=== PATIENT | female | born 1980 | race African-American/Black ===

== ENCOUNTER 2016-09-01 18:26 | Emergency (ER) | payer MEDICAID ==
[~2016-09-01] VITALS: Ht 157.5 cm; Wt 85.0 kg
[2016-09-01 18:28] VITALS: BP 181/91; PULSE 102; RESP 16; TEMP 98.1; O2SAT 100
[2016-09-02] MEDS ORDERED: BACT800T5 PO (11:56)
[2016-09-02] MEDS ORDERED: CYCL5TAB PO (11:56)
== END 2016-09-01 23:59 | disposition left against medical advice (07) ==
LOC: NED 18:26
DX: R10.9 Unspecified abdominal pain (principal)
CPT/HCPCS: 99281

== ENCOUNTER 2016-09-02 11:14 | Emergency (ER) | payer MEDICAID, OTHER ==
[~2016-09-02] VITALS: Ht 157.5 cm; Wt 82.0 kg
[2016-09-02 11:17] VITALS: BP 162/122; PULSE 81; RESP 16; TEMP 98.7; O2SAT 99
--- NOTE | 2016-09-02 11:27 | PD ---
HPI . Left-sided back pain Chief Complaint: Pain: Acute or Chronic Time Seen by Provider: 11:27 Travel History International Travel<30 days: No Contact w/Intl Traveler<30days: No Traveled to known affect area: No History of Present Illness HPI 35-year-old female with no significant past medical history here with complaints of left-sided back pain. Patient says it has been a little bit more prominent over the past 2 days. She has had similar symptoms in the past roughly a few months ago and eventually the pain subsided. She has not yet seen a primary care provider as she has some difficulty understanding her insurance. Further questioning she admits to some increased urinary frequency, but denies any dysuria. She does not have any bowel or bladder dysfunction. She does not have any saddle anesthesia. She does not have spinal process tenderness. She denies any recent injury or heavy lifting. She has no other complaints. Her blood pressure is elevated, but she denies any history of hypertension. PFSH Past Medical History Hx Anticoagulant Therapy: No Diabetes: No Diminished Hearing: No ?: Not : 6 Para: 4 Miscarriage: 0 : 2 Tubal Ligation: Yes Past Surgical History Section: Yes (X 3) Other Surgery: Yes (HERNIA REPAIR) Social History Alcohol Use: Yes (OCC.) Tobacco Use: Yes Substance Use: Yes ("PAST") Allergies-Medications (Allergen,Severity, Reaction): Coded Allergies: No Known Allergies (Verified , 09/02/16) Reported Meds & Prescriptions Reported Meds & Active Scripts Active Flexeril (Cyclobenzaprine HCl) 5 Mg Tab 5 Mg PO TID Bactrim DS (Sulfamethoxazole-Trimethoprim) 800-160 Mg Tab 1 Tab PO BID Review of Systems General / Constitutional: No: Fever Eyes: No: Visual changes HENT: No: Headaches Cardiovascular: No: Chest Pain or Discomfort Respiratory: No: Shortness of Breath Gastrointestinal: No: Abdominal Pain Genitourinary: No: Dysuria Musculoskeletal: Positive: Pain (back pain) Skin: No Rash Neurologic: No: Weakness Psychiatric: No: Depression Endocrine: No: Polydipsia Hematologic/Lymphatic: No: Easy Bruising Physical Exam Narrative GENERAL: AAO x 3, no acute distress, Well-nourished, well-developed patient. SKIN: Warm and dry. No visible rashes or bruising. HEAD: Normocephalic and atraumatic. EYES: No scleral icterus. No injection or drainage. ENT: No nasal drainage noted. Mucous membranes pink. Airway patent. NECK: Supple, trachea midline. No JVD. CARDIOVASCULAR: Regular rate and rhythm without murmurs, gallops, or rubs. RESPIRATORY: Breath sounds equal bilaterally. No accessory muscle use. No rhonchi or rales. GASTROINTESTINAL: Abdomen soft, non-tender, nondistended. EXTREMITIES: No cyanosis or edema. BACK: Nontender without obvious deformity. No CVA tenderness. left side paraspinal tenderness in l spine PSYCH: AAO x 3, normal affect. Data Data Last Documented VS Vital Signs Date Time Temp Pulse Resp B/P Pulse Ox O2 Delivery O2 Flow Rate FiO2 09/02/16 11:17 98.7 81 16 162/122 99 Orders Urinalysis - C+S If Indicated (09/02/16 11:29) Labs Laboratory Tests Test 09/02/16 11:35 Urine Collection Type CLEAN CATCH Urine Color YELLOW Urine Turbidity SLIGHT Urine pH 6.0 Urine Specific [place] 1.025 Urine Protein NEG mg/dL Urine Glucose (UA) NEG mg/dL Urine Ketones NEG mg/dL Urine Occult Blood TRACE Urine Nitrite NEG Urine Bilirubin NEG Urine Leukocyte Esterase TRACE Urine RBC 0-3 /hpf Urine WBC 3-5 /hpf Urine Squamous Epithelial > 8 /hpf Cells Urine Amorphous Sediment MOD Urine Bacteria FEW /hpf Microscopic Urinalysis Comment CULT NOT INDICATED Urine Collection Time 1135 MDM Medical Decision Making Medical Screen Exam Complete: Yes Emergency Medical Condition: Yes Medical Record Reviewed: Yes Differential Diagnosis Muscle strain, UTI, less likely spinal fracture Narrative Course 35-year-old female with no significant past medical history here with complaints of left-sided back pain. Patient says it has been a little bit more prominent over the past 2 days. She has had similar symptoms in the past roughly a few months ago and eventually the pain subsided. She has not yet seen a primary care provider as she has some difficulty understanding her insurance. Further questioning she admits to some increased urinary frequency, but denies any dysuria. She does not have any bowel or bladder dysfunction. She does not have any saddle anesthesia. She does not have spinal process tenderness. She denies any recent injury or heavy lifting. She has no other complaints. Her blood pressure is elevated, but she denies any history of hypertension. Patient seen and examined. She does not have any significant findings on examination other than some paraspinal tenderness in the lumbar area. She does admit to increased urinary frequency, therefore I will check a UA to rule out any type of UTI. If urine is positive, will treat for urinary tract infection. If negative I will treat her with a course of muscle relaxers. I've advised her that she will need to establish and follow up with primary care provider for further workup of her back pain as well as recheck of her blood pressure. Laboratory Tests Test 09/02/16 11:35 Urine Collection Type CLEAN CATCH Urine Color YELLOW Urine Turbidity SLIGHT Urine pH 6.0 Urine Specific [place] 1.025 Urine Protein NEG mg/dL Urine Glucose (UA) NEG mg/dL Urine Ketones NEG mg/dL Urine Occult Blood TRACE Urine Nitrite NEG Urine Bilirubin NEG Urine Leukocyte Esterase TRACE Urine RBC 0-3 /hpf Urine WBC 3-5 /hpf Urine Squamous Epithelial > 8 /hpf Cells Urine Amorphous Sediment MOD Urine Bacteria FEW /hpf Microscopic Urinalysis Comment CULT NOT INDICATED Urine Collection Time 1135 Patient has trace of leuks and blood, with increased urinary frequency. Will go ahead and treat for UTI Patient verbalized understanding of instructions, questions were answered, and thanked me for their care. I advised them if their condition worsens, please return to the nearest emergency room for further care. Diagnosis Primary Impression: Elevated blood pressure reading without diagnosis of hypertension Additional Impressions: Urinary tract infection Qualified Code: N30.01 - Acute cystitis with hematuria Muscle strain Patient Instructions: General Instructions, Hypertension (ED), Muscle Strain ( ED) Additional Instructions: Please return to emergency department if your symptoms return or worsen. Follow up with your primary care provider. Take medications as prescribed. Muscle relaxers can cause drowsiness. Do not drive, swim or operate heavy machinery while using these medications. Med/Other Pt SpecificInfo: Prescription(s) given Scripts Cyclobenzaprine (Flexeril)5 Mg Tab5 Mg PO TID #21 TAB Ref 0 Prov:Elif Harkins DO 09/02/16 Sulfamethoxazole-Trimethoprim (Bactrim DS)800-160 Mg Tab1 Tab PO BID #20 TAB Prov:Elif Harkins DO 09/02/16 Disposition: 01 DISCHARGE HOME Condition: Stable Cherry Finch Sep 02, 2016 11:27
[2016-09-02 11:42] LABS: BLOOD, URINE TRACE (NEG); GLUCOSE,URINE NEG (NEG); KETONE, URINE NEG (NEG); NITRITE,URINE NEG (NEG)
[2016-09-02 11:43] LABS: METHOD OF COLLECTION CLEAN CATCH; URINE COLOR YELLOW (YELLW/STRAW)
[2016-09-02 11:47] LABS: BACTERIA, URINE FEW /hpf; CULTURE IF INDICATED CULT NOT INDICATED; RBC, URINE 0-3 /hpf (0-3)
[2016-09-02 11:48] LABS: COMMENT (UR) CULT NOT INDICATED; COMMENT2 (UR) MUCOUS PRESENT; SQUAMOUS EPITHELIAL CELL URINE > 8 /hpf (0-5)
[2016-09-02] MEDS ORDERED: BACT800T5 PO (11:56)
[2016-09-02] MEDS ORDERED: CYCL5TAB PO (11:56)
== END 2016-09-02 12:36 | disposition home or self-care (01) ==
LOC: PHEFT 11:14
DX: R03.0 Elevated blood-pressure reading, without diagnosis of hypertension (principal); N39.0 Urinary tract infection, site not specified; T14.8 Other injury of unspecified body region; Z72.0 Tobacco use
CPT/HCPCS: 81001; 99283

== ENCOUNTER 2017-11-25 11:52 | Emergency (ER) | payer MEDICAID, OTHER ==
[~2017-11-25] VITALS: Ht 157.5 cm; Wt 80.0 kg
[~2017-11-25 11:52] MED LIST: BACT800T5 PO; CYCL5TAB PO
[2017-11-25 11:56] VITALS: BP 164/95; PULSE 90; RESP 16; TEMP 97.9; O2SAT 99
--- NOTE | 2017-11-25 12:18 | PD ---
HPI Chief Complaint: Medical Clearance Time Seen by Provider: 12:03 Travel History International Travel<30 days: No Contact w/Intl Traveler<30days: No Traveled to known affect area: No History of Present Illness HPI Patient is a 36-year-old female who presents the emergency room for evaluation of tiredness. Patient reports that she has been tired for the past month, reports that this is not her normal self and she is not sure why. Patient reports that she has been sleeping, denies any new stressors. Reports that she doesn't have a PCP so wanted to get "checked out." Patient denies any fevers or chills, denies any nausea vomiting. Patient with no chest pain shortness of breath. Patient with only history of anemia with pregnancies, reports history of tubal ligation. PFSH Past Medical History Medical History: Denies Significant Hx Hx Anticoagulant Therapy: No Diabetes: No Diminished Hearing: No Tetanus Vaccination: Unknown ?: Not LMP: "Last Month" : 6 Para: 4 Miscarriage: 0 : 2 Tubal Ligation: Yes Past Surgical History Section: Yes (X 3) Other Surgery: Yes (HERNIA REPAIR) Social History Alcohol Use: Yes (OCC.) Tobacco Use: Yes (OCC) Substance Use: No Allergies-Medications (Allergen,Severity, Reaction): Coded Allergies: No Known Allergies (Verified , 09/02/16) Reported Meds & Prescriptions Reported Meds & Active Scripts Active Flexeril (Cyclobenzaprine HCl) 5 Mg Tab 5 Mg PO TID Bactrim DS (Sulfamethoxazole-Trimethoprim) 800-160 Mg Tab 1 Tab PO BID Review of Systems General / Constitutional: Positive: Other ("Tiredness"), No: Fever Eyes: No: Visual changes HENT: No: Headaches Cardiovascular: No: Chest Pain or Discomfort Respiratory: No: Shortness of Breath Gastrointestinal: No: Abdominal Pain Genitourinary: No: Dysuria Musculoskeletal: No: Pain Skin: No Rash Neurologic: No: Weakness Psychiatric: No: Depression Endocrine: No: Polydipsia Hematologic/Lymphatic: No: Easy Bruising Physical Exam Narrative GENERAL: NAD SKIN: Focused skin assessment warm/dry. HEAD: Atraumatic. Normocephalic. EYES: Pupils equal and round. No scleral icterus. No injection or drainage. ENT: No nasal bleeding or discharge. Mucous membranes pink and moist. NECK: Trachea midline. No JVD. CARDIOVASCULAR: Regular rate and rhythm. No murmur appreciated. RESPIRATORY: No accessory muscle use. Clear to auscultation. Breath sounds equal bilaterally. GASTROINTESTINAL: Abdomen soft, non-tender, nondistended. Hepatic and splenic margins not palpable. MUSCULOSKELETAL: No obvious deformities. No clubbing. No cyanosis. No edema. NEUROLOGICAL: Awake and alert. No obvious cranial nerve deficits. Motor grossly within normal limits. Normal speech. PSYCHIATRIC: Appropriate mood and affect; insight and judgment normal. Data Data Last Documented VS Vital Signs Date Time Temp Pulse Resp B/P (MAP) Pulse Ox O2 Delivery O2 Flow Rate FiO2 11/25/17 11:56 97.9 90 16 164/95 (118) 99 Orders Orders Ed Urine Pregnancytest Poc (11/25/17 12:03) Basic Metabolic Panel (Bmp) (11/25/17 12:03) Complete Blood Count With Diff (11/25/17 12:03) Urinalysis - C+S If Indicated (11/25/17 12:03) Thyroid Stimulating Hormone (11/25/17 12:12) Labs Laboratory Tests Test 11/25/17 12:15 11/25/17 12:30 White Blood Count 5.8 TH/MM3 Red Blood Count 4.98 MIL/MM3 Hemoglobin 14.7 GM/DL Hematocrit 42.4 % Mean Corpuscular Volume 85.2 FL Mean Corpuscular Hemoglobin 29.6 PG Mean Corpuscular Hemoglobin Concent 34.7 % Red Cell Distribution Width 14.0 % Platelet Count 256 TH/MM3 Mean Platelet Volume 8.1 FL Neutrophils (%) (Auto) 63.1 % Lymphocytes (%) (Auto) 27.8 % Monocytes (%) (Auto) 7.5 % Eosinophils (%) (Auto) 0.7 % Basophils (%) (Auto) 0.9 % Neutrophils # (Auto) 3.6 TH/MM3 Lymphocytes # (Auto) 1.6 TH/MM3 Monocytes # (Auto) 0.4 TH/MM3 Eosinophils # (Auto) 0.0 TH/MM3 Basophils # (Auto) 0.1 TH/MM3 CBC Comment DIFF FINAL Differential Comment Blood Urea Nitrogen 12 MG/DL Creatinine 0.94 MG/DL Random Glucose 103 MG/DL Calcium Level 8.6 MG/DL Sodium Level 141 MEQ/L Potassium Level 4.1 MEQ/L Chloride Level 111 MEQ/L Carbon Dioxide Level 21.8 MEQ/L Anion Gap 8 MEQ/L Estimat Glomerular Filtration Rate 82 ML/MIN Thyroid Stimulating Hormone 3rd Gen 0.923 uIU/ML Urine Color YELLOW Urine Turbidity HAZY Urine pH 5.0 Urine Specific [place] 1.019 Urine Protein NEG mg/dL Urine Glucose (UA) NEG mg/dL Urine Ketones NEG mg/dL Urine Occult Blood SMALL Urine Nitrite NEG Urine Bilirubin NEG Urine Urobilinogen LESS THAN 2 mg/dL Urine Leukocyte Esterase TRACE Urine RBC 2 /hpf Urine WBC 2 /hpf Urine Squamous Epithelial Cells 6 /hpf Microscopic Urinalysis Comment CULT NOT INDICATED MDM Medical Decision Making Medical Screen Exam Complete: Yes Emergency Medical Condition: Yes Medical Record Reviewed: Yes Interpretation(s) Vital Signs Date Time Temp Pulse Resp B/P (MAP) Pulse Ox O2 Delivery O2 Flow Rate FiO2 11/25/17 11:56 97.9 90 16 164/95 (118) 99 Differential Diagnosis Anemia, electrolyte abnormality, UTI, abnormal TSH Narrative Course During the course of the patients emergency department visit, the patients history, examination, and differential diagnosis were reviewed with the patient. The patient was placed on a vehicle monitor technician with oximetry and frequent blood pressure monitoring. The patients laboratory studies were reviewed and remarkable for: CBC & BMP Diagram 11/25/17 12:15 Calcium Level 8.6 tsh 0.923 Vital Signs Date Time Temp Pulse Resp B/P (MAP) Pulse Ox O2 Delivery O2 Flow Rate FiO2 11/25/17 11:56 97.9 90 16 164/95 (118) 99 Lab work reviewed, patient with hemoglobin of 14.7, hematocrit 42.4, WBC 5.8, platelets 256, TSH 0.923, sodium 141, potassium 4.1, BUN 12, creatinine 0.94 Patient's labs have been reviewed, vital signs are stable, discussed with patient that her symptoms have been ongoing for the past month, she will need to follow-up with her primary care doctor for further workup of her "tiredness. " She suffers no medical emergency at this time and does not require admission to the hospital for further workup of her "tiredness" and can be safely discharged from the emergency room Diagnosis Primary Impression: Tiredness Patient Instructions: General Instructions Additional Instructions: Please provide patient with a copy of their lab work and studies at discharge* * Please follow up with your primary care doctor in 2-3 days Return to the ER if symptoms worsen or progress Return to the ER as needed Disposition: 01 DISCHARGE HOME Condition: Stable Elif Harkins DO Nov 25, 2017 12:18
[2017-11-25 12:43] LABS: AUTOMATED NEUTROPHIL # 3.6 TH/MM3 (1.8-7.7); BASOPHIL # 0.1 TH/MM3 (0-0.2); BASOPHIL % 0.9 % (0.0-2.0); EOSINOPHIL % 0.7 % (0.0-4.0); HEMATOCRIT 42.4 % (35.0-46.0); HEMOGLOBIN 14.7 GM/DL (11.6-15.3); LYMPH % 27.8 % (9.0-44.0); LYMPHOCYTE # 1.6 TH/MM3 (1.0-4.8); MEAN CELL VOLUME 85.2 FL (80.0-100.0); MEAN CORPUSCULAR HEMOGLOBIN 29.6 PG (27.0-34.0); MEAN CORPUSCULAR HGB CONC 34.7 % (32.0-36.0); MEAN PLATELET VOLUME 8.1 FL (7.0-11.0); MONO % 7.5 % (0.0-8.0); MONOCYTE # 0.4 TH/MM3 (0-0.9); NEUT % 63.1 % (16.0-70.0); PLATELET COUNT 256 TH/MM3 (150-450); RED BLOOD COUNT 4.98 MIL/MM3 (4.00-5.30); WHITE BLOOD COUNT 5.8 TH/MM3 (4.0-11.0)
[2017-11-25 12:51] LABS: BILIRUBIN, URINE NEG (NEG); BLOOD, URINE SMALL (NEG); GLUCOSE,URINE NEG (NEG); KETONE, URINE NEG (NEG); NITRITE,URINE NEG (NEG); SQUAMOUS EPITHELIAL CELL URINE 6 /hpf (0-5); URINE COLOR YELLOW (YELLW/STRAW); URINE LEUKOCYTE ESTERASE TRACE (NEG)
[2017-11-25 13:06] LABS: BICARBONATE 21.8 MEQ/L (21.0-32.0); CALCIUM 8.6 MG/DL (8.5-10.1); CREATININE 0.94 MG/DL (0.50-1.00)
[2017-11-25] MEDS ORDERED: PERC5TAB12 PO (13:16)
== END 2017-11-25 15:15 | disposition home or self-care (01) ==
LOC: NEPD 11:52
DX: R53.83 Other fatigue (principal); Z72.0 Tobacco use
CPT/HCPCS: 80048; 81001; 84443; 84703; 85025; 99283